=== PATIENT | female | born 1970 | race American Indian/Alaskan Native ===

== ENCOUNTER 2018-12-17 08:26 | Outpatient (CLI) | payer OTHER ==
--- NOTE | 2018-12-17 12:19 | Magnetic Resonance Report ---
MRI right knee without contrast INDICATION: DERANGEMENT/RIGHT KNEE PAIN. Generalized knee pain and swelling when standing and rotat ing. COMPARISON: None FINDINGS: There is mild tricompartmental degenerative arthrosis with no acute osseous abnormality id entified. There is a complex primarily obliquely oriented undersurface tear involving the body and po sterior horn of the medial meniscus. The lateral meniscus is intact. There is a moderately-sized join t effusion which is likely reactive and mild generalized swelling about the knee especially anteromed ially. The cruciate ligaments, collateral ligaments, and extensor mechanism are all intact. IMPRESSION: Mild tricompartmental DJD with obliquely are noted undersurface tear involving the body and posterior horn of the medial meniscus as above, with moderately-sized likely reactive joint effus ion. Signer Name: Terry Hamm MD Signed: 12/17/2018 12:14 PM Workstation Name: [id number]
== END 2018-12-17 08:27 | disposition home or self-care (01) ==
LOC: SPVIMAG 08:26
PROVIDERS: ATTEND Orthopaedic Surgery
DX: S83.241A Other tear of medial meniscus, current injury, right knee, initial encounter (principal); M17.11 Unilateral primary osteoarthritis, right knee; X58.XXXA Exposure to other specified factors, initial encounter; Y93.89 Activity, other specified; Y92.89 Other specified places as the place of occurrence of the external cause; Y99.8 Other external cause status
CPT/HCPCS: 73721